=== PATIENT | female | born 1995 | race Caucasian/White ===

== ENCOUNTER 2024-03-24 06:48 | Emergency (ER) | payer BC ==
[2024-03-24 08:08] LABS: SARS-CoV-2 Antigen CONTROL BLUE LINE VIS/BG OK; SARS-CoV-2 Antigen Rapid Res Negative (Negative)
--- NOTE | 2024-03-24 08:25 | ER ---
Nurse's Notes [facility] Name: Karlee Valladares Age: 28 yrs Sex: Female : 1995 Arrival Date: 03/24/2024 Time: 06:48 Bed 20 Private MD: Diagnosis: Acute sinusitis, unspecified Presentation: 03/24 07:02 Chief complaint: Patient states: Headache, fatigue, chills since last night. Pt states ld1 "I just want a COVID test to rule it out.". Coronavirus screen: At this time, the client does not indicate any symptoms associated with coronavirus-19. Ebola Screen: No symptoms or risks identified at this time. Initial Sepsis Screen: Does the patient meet any 2 criteria? No. Patient's initial sepsis screen is negative. Does the patient have a suspected source of infection? No. Patient's initial sepsis screen is negative. Risk Assessment: Do you want to hurt yourself or someone else? Patient reports no desire to harm self or others. Onset of symptoms was March 24, 2024. 07:02 Method Of Arrival: Ambulatory ld1 07:02 Acuity: CHARITO 4 ld1 Triage Assessment: 07:03 General: Appears in no apparent distress. comfortable, Behavior is calm, cooperative, ld1 appropriate for age. Pain: Denies pain. EENT: No signs and/or symptoms were reported regarding the EENT system. Neuro: Level of Consciousness is awake, alert, obeys commands, Oriented to person, place, time, situation, Appropriate for age. Neuro: Reports headache. Cardiovascular: Capillary refill < 3 seconds Patient's skin is warm and dry. Respiratory: Airway is patent Respiratory effort is even, unlabored, Breath sounds are clear bilaterally. GI: Abdomen is round non-distended. : No signs and/or symptoms were reported regarding the genitourinary system. Derm: No signs and/or symptoms reported regarding the dermatologic system. Musculoskeletal: No signs and/or symptoms reported regarding the musculoskeletal system. Historical: - Allergies: 07:03 No Known Allergies; ld1 - Home Meds: 07:03 None [Active]; ld1 - PMHx: 07:03 None; ld1 - PSHx: 07:03 None; ld1 - Immunization history:: Adult Immunizations up to date. - Infectious Disease History:: Denies. - Social history:: Smoking status: Reported history of juuling and/or vaping. - Family history:: not pertinent. - Hospitalizations: : No recent hospitalization is reported. Screenin:04 [facility] ED Fall Risk Assessment (Adult) History of falling in the last 3 months, ld1 including since admission No falls in past 3 months (0 pts) Confusion or Disorientation No (0 pts) Intoxicated or Sedated No (0 pts) Impaired Gait No (0 pts) Mobility Assist Device Used No (0 pt) Altered Elimination No (0 pt) Score/Fall Risk Level 0 - 2 = Low Risk Oriented to surroundings, Maintained a safe environment, Educated pt \\T\\ family on fall prevention, incl call for assistance when getting out of bed, Assessed \\T\\ reinforced patient's understanding of fall precautions, Provided non-skid footwear, Hourly rounding (assess needs \\T\\ fall precautionary measures) done, Used ambulatory aids as needed (educated on \\T\\ assisted with), Used gait belt as appropriate. Abuse screen: Denies threats or abuse. Denies injuries from another. Nutritional screening: No deficits noted. Tuberculosis screening: No symptoms or risk factors identified. Assessment: 07:04 Reassessment: See triage assessment. Cardiovascular: Capillary refill < 3 seconds ld1 Patient's skin is warm and dry. Respiratory: Airway is patent Respiratory effort is even, unlabored. Vital Signs: 07:02 BP 148 / 107; Pulse 99; Resp 18; Temp 98.3(O); Pulse Ox 99% on R/A; Weight 106.59 kg; ld1 Height 5 ft. 2 in. ; Pain 0/10; 08:31 BP 159 / 64; Pulse 88; Resp 16; Pulse Ox 100% ; ko1 07:02 Body Mass Index 42.98 (106.59 kg, 157.48 cm) ld1 07:02 Pain Scale: Adult ld1 ED Course: 06:53 Patient arrived in ED. gm2 06:58 Kia Laura, MICH is Primary Nurse. ld1 06:58 Benjamín Meek MD is Attending Physician. rn 07:03 Triage completed. ld1 07:03 Arm band placed on right wrist. ld1 07:04 Patient has correct armband on for positive identification. Placed in gown. Bed in low ld1 position. Call light in reach. Side rails up X2. Pulse ox on. NIBP on. Door closed. Noise minimized. Warm blanket given. 07:04 No provider procedures requiring assistance completed. ld1 07:36 Strep Sent. ld1 07:36 Flu Sent. ld1 07:36 SARS RAPID Sent. ld1 08:31 Provided Education on: tests. ko1 08:31 Patient did not have IV access during this emergency room visit. ko1 Administered Medications: No medications were administered Medication: : VIS not applicable for this client. ko1 Outcome: 08:24 Discharge ordered by . rn 08:31 Discharged to home ambulatory, ko1 08:31 Condition: stable 08:31 Discharge instructions given to patient, Instructed on discharge instructions, follow up and referral plans. medication usage, Demonstrated understanding of instructions, follow-up care, medications, Prescriptions given X 1, 08:32 Patient left the ED. ko1 Signatures: Benjamín Meek MD MD rn Sims, Lauren, RN RN ld1 Nicole Deleon RN RN ko1 Helena Omer 2
--- NOTE | 2024-03-24 08:25 | EDPHYS ---
Physician Documentation [facility] Name: Karlee Valladares Age: 28 yrs Sex: Female : 1995 Arrival Date: 03/24/2024 Time: 06:48 Bed 20 Private MD: ED Physician Benjamín Meek HPI: 03/24 07:40 This 28 yrs old Female presents to ER via Ambulatory with complaints of Flu Symptoms, rn Congestion, Fever. 07:40 The patient reports fever, not measured (subjective). Onset: The symptoms/episode rn began/occurred yesterday. Modifying factors: there are no obvious modifying factors. Associated signs and symptoms: Pertinent positives: chills, sinus congestion, Pertinent negatives: abdominal pain, altered mental status, diarrhea, hemoptysis, skin rash, shortness of breath, swelling, vomiting. Severity of symptoms: At their worst the symptoms were mild in the emergency department the symptoms are unchanged. The patient has experienced similar episodes in the past. Historical: - Allergies: 07:03 No Known Allergies; ld1 - Home Meds: 07:03 None [Active]; ld1 - PMHx: 07:03 None; ld1 - PSHx: 07:03 None; ld1 - Immunization history:: Adult Immunizations up to date. - Infectious Disease History:: Denies. - Social history:: Smoking status: Reported history of juuling and/or vaping. - Family history:: not pertinent. - Hospitalizations: : No recent hospitalization is reported. ROS: 07:40 Constitutional: Positive for subjective fever and myalgias with chills Eyes: Negative rn for injury, pain, redness, and discharge, Neck: Negative for injury, pain, and swelling, Cardiovascular: Negative for chest pain, palpitations, and edema, Respiratory: Negative for shortness of breath, wheezing, and pleuritic chest pain, Abdomen/GI: Negative for abdominal pain, nausea, vomiting, diarrhea, and constipation, MS/Extremity: Negative for injury and deformity, Skin: Negative for injury, rash, and discoloration, Neuro: Positive for headache and generalized malaise Exam: 07:40 Constitutional: This is a well developed, well nourished patient who is awake, alert, rn and in no acute distress. ENT: Moist mucous membranes, normal pharynx. No swelling. No stridor. Neck: No cervical lymphadenopathy present. No nuchal rigidity or meningismus. Cardiovascular: Regular rate and rhythm. No pulse deficits. Respiratory: No increased work of breathing, no retractions or nasal flaring. Vital Signs: 07:02 BP 148 / 107; Pulse 99; Resp 18; Temp 98.3(O); Pulse Ox 99% on R/A; Weight 106.59 kg; ld1 Height 5 ft. 2 in. ; Pain 0/10; 08:31 BP 159 / 64; Pulse 88; Resp 16; Pulse Ox 100% ; ko1 07:02 Body Mass Index 42.98 (106.59 kg, 157.48 cm) ld1 07:02 Pain Scale: Adult ld1 MDM: 06:58 Patient medically screened. rn 08:23 Differential diagnosis: viral Infection, URI, sinusitis. Data reviewed: vital signs, rn nurses notes, lab test result(s), and as a result, I will discharge patient. Counseling: I had a detailed discussion with the patient and/or guardian regarding the historical points, exam findings, and any diagnostic results supporting the discharge/admit diagnosis, lab results, the need for outpatient follow up, to return to the emergency department if symptoms worsen or persist or if there are any questions or concerns that arise at home. Special discussion: I discussed with the patient/guardian in detail that at this point there is no indication for admission to the hospital. It is understood, however, that if the symptoms persist or worsen the patient needs to return immediately for re-evaluation. 03/24 07:17 Order name: Strep rn 03/24 07:16 Order name: SARS RAPID; Complete Time: 08:23 ld1 03/24 07:17 Order name: SARS RAPID rn 03/24 07:17 Order name: Flu; Complete Time: 08:23 rn 03/24 08:00 Order name: Throat Culture EDMS Administered Medications: No medications were administered Disposition Summary: 03/24/24 08:24 Discharge Ordered Notes: Location: Home rn Problem: new rn Symptoms: have improved rn Condition: Stable rn Diagnosis - Acute sinusitis, unspecified rn Followup: rn - With: Private Physician - When: As needed - Reason: Recheck today's complaints, Re-evaluation by your physician Discharge Instructions: - Discharge Summary Sheet rn - Sinusitis, Adult rn Forms: - Medication Reconciliation Form rn - Antibiotic patent prosecution attorney - Prescription Opioid Use rn - Patient Portal Instructions rn - Leadership Thank You Letter rn Prescriptions: - Zithromax Z-Jakob 250 mg Oral Tablet - take 1 tablet ORAL route as directed for 5 days Day 1 - take two (2) tablets rn one time. Day 2, 3, 4 , 5 take one (1) tablet once daily.; 6 tablet; Refills: 0, Product Selection Permitted Signatures: Dispatcher [employer] EDMS Benjamín Meek MD MD rn Sims, Lauren, RN RN ld1 Corrections: (The following items were deleted from the chart) 08:12 07:17 Influenza Screen (A \T\ B)+BA.LAB.BRZ ordered. EDMS EDMS
[2024-03-24 08:40] VITALS: TEMP 98.3
[2024-03-24 08:41] VITALS: BP 159/64; O2SAT 100
== END 2024-03-24 08:32 | disposition home or self-care (01) ==
LOC: ER 06:48
DX: J01.90 Acute sinusitis, unspecified (principal); Z11.52 Encounter for screening for COVID-19
CPT/HCPCS: 36415; 87070; 87081; 87804; 87811; 99283

== ENCOUNTER 2024-03-26 06:01 | Emergency (ER) | payer BC ==
[2024-03-26] MEDS ORDERED: IBUPROFEN 400 MG TAB ONE (07:09)
[2024-03-26 07:16] LABS: SARS-CoV-2 Antigen CONTROL BLUE LINE VIS/BG OK; SARS-CoV-2 Antigen Rapid Res Negative (Negative)
[2024-03-26 07:24] LABS: Specific Gravity 1.023 (1.005-1.030)
[2024-03-26 07:26] LABS: Specific Gravity 1.023 (1.005-1.030); Urine Bacteria None Seen /HPF (<20); Urine Bilirubin NEGATIVE (Negative); Urine Blood Negative (Negative); Urine Clarity Extremely Turbid (Clear); Urine Color Yellow (Yellow); Urine Culture Reflex Order REFLEXED; Urine Glucose NEGATIVE (Negative); Urine Ketones NEGATIVE (Negative); Urine Microscopic Reflex YN ORDER UMIC; Urine Mucus 2+ /HPF (None Seen); Urine Nitrite NEGATIVE (Negative); Urine Protein TRACE (Negative); Urine RBC <5 /HPF (None Seen); Urine Urobilinogen 1+ (Normal); Urine WBC 20-50 /HPF (<5); Urine WBC Clump Rare /HPF (None Seen)
--- NOTE | 2024-03-26 08:49 | ER ---
Nurse's Notes [facility] Name: Karlee Valladares Age: 28 yrs Sex: Female : 1995 Arrival Date: 03/26/2024 Time: 06:01 Bed 15 Private MD: Diagnosis: Headache;UTI/ Urinary tract infection, site not specified;Acute cystitis with hematuria;Fever, unspecified;Nausea with vomiting, unspecified Presentation: 03/26 06:05 Chief complaint: Patient states: head pressure, chills x 2 days. Was swabbed for Covid, ss flu and strep in ER two days ago and was negative for everything. Pt reports she does not feel better. Coronavirus screen: Client denies travel out of the [place] in the last 14 days. Client presents with at least one sign or symptom that may indicate coronavirus-19. Ebola Screen: Patient denies exposure to infectious person. Patient denies travel to an Ebola-affected area in the 21 days before illness onset. Initial Sepsis Screen: Does the patient meet any 2 criteria? No. Patient's initial sepsis screen is negative. Does the patient have a suspected source of infection? No. Patient's initial sepsis screen is negative. Risk Assessment: Do you want to hurt yourself or someone else? Patient reports no desire to harm self or others. Onset of symptoms was March 23, 2024. 06:05 Method Of Arrival: Ambulatory ss 06:05 Acuity: CHARITO 4 ss Triage Assessment: 07:20 Headache History: Denies prior headaches. 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 - Infectious Disease History:: Denies. - Social history:: Smoking status: Reported history of juuling and/or vaping. Screenin:18 [facility] ED Fall Risk Assessment (Adult) History of falling in the last 3 months, kc6 including since admission No falls in past 3 months (0 pts) Confusion or Disorientation No (0 pts) Intoxicated or Sedated No (0 pts) Impaired Gait No (0 pts) Mobility Assist Device Used No (0 pt) Altered Elimination No (0 pt) Score/Fall Risk Level 0 - 2 = Low Risk. Abuse screen: Denies threats or abuse. Denies injuries from another. Nutritional screening: No deficits noted. Tuberculosis screening: No symptoms or risk factors identified. Assessment: 07:19 General: Appears in no apparent distress. uncomfortable, obese, well groomed, well kc6 developed, Behavior is calm, cooperative, appropriate for age, Reports chills for 2-3 days, fever for 2-3 days, feeling ill for 2-3 days, fatigue for 2-3 days. Neuro: Level of Consciousness is awake, alert, obeys commands, Oriented to person, place, time, situation, Appropriate for age Reports headache weakness. Cardiovascular: Capillary refill < 3 seconds. Respiratory: Airway is patent Trachea midline Respiratory effort is even, unlabored, Respiratory pattern is regular, symmetrical. GI: Reports nausea, Patient currently denies abdominal pain, diarrhea, vomiting. : No signs and/or symptoms were reported regarding the genitourinary system. EENT: No signs and/or symptoms were reported regarding the EENT system. Derm: No signs and/or symptoms reported regarding the dermatologic system. Skin is intact, is healthy with good turgor, Skin is pink, warm \T\ dry. Musculoskeletal: No signs and/or symptoms reported regarding the musculoskeletal system. Circulation, motion, and sensation intact. Capillary refill < 3 seconds, Range of motion: intact in all extremities. 08:21 Reassessment: Patient appears in no apparent distress at this time. No changes from kc6 previously documented assessment. Patient and/or family updated on plan of care and expected duration. Pain level reassessed. Patient is alert, oriented x 3, equal unlabored respirations, skin warm/dry/pink. 09:38 Reassessment: Patient appears in no apparent distress at this time. No changes from kc6 previously documented assessment. Patient and/or family updated on plan of care and expected duration. Pain level reassessed. Patient is alert, oriented x 3, equal unlabored respirations, skin warm/dry/pink. Vital Signs: 06:05 BP 130 / 89; Pulse 105; Resp 18; Temp 99.3(TE); Pulse Ox 97% ; Weight 106.59 kg; Height ss 5 ft. 2 in. ; Pain 0/10; 08:21 BP 132 / 82; Pulse 90; Resp 18 S; Temp 98.3(O); Pulse Ox 100% on R/A; kc6 06:05 Body Mass Index 42.98 (106.59 kg, 157.48 cm) ss 06:05 Pain Scale: Adult ss [place] Coma Score: 08:46 Eye Response: spontaneous(4). Motor Response: obeys commands(6). Verbal Response: sumi oriented(5). Total: 15. ED Course: 06:04 Patient arrived in ED. jj6 06:08 Triage completed. ss 06:08 Arm band placed on. ss 07:02 COVID swab sent to lab. Flu and/or RSV swab sent to lab. oe 07:02 Flu Sent. oe 07:02 SARS RAPID Sent. oe 07:05 Abel Lares MD is Attending Physician. sumi 07:08 Ghazal Betts, RN is Primary Nurse. kc6 07:18 Patient has correct armband on for positive identification. Bed in low position. Call kc6 light in reach. Adult w/ patient. Pulse ox on. NIBP on. Door closed. Noise minimized. Lights dimmed. Warm blanket given. Pillow given. 07:18 Urinalysis w/ reflexes Sent. kc6 07:18 PREGU Sent. kc6 07:18 Strep Sent. kc6 09:37 No provider procedures requiring assistance completed. Patient did not have IV access kc6 during this emergency room visit. Administered Medications: 07:18 Drug: Ibuprofen PO 800 mg PO once Route: PO; kc6 08:22 Follow up: Response: No adverse reaction kc6 08:54 Drug: LevOfloxacin PO 750 mg PO once Route: PO; kc6 09:37 Follow up: Response: No adverse reaction kc6 08:54 Drug: Ondansetron Oral Disintegrating Tablet Oral Disintegrating Tablet 4 mg PO once kc6 Route: PO; 09:37 Follow up: Response: No adverse reaction kc6 Medication: 09:37 VIS not applicable for this client. kc6 Outcome: 08:48 Discharge ordered by . sumi 09:37 Discharged to home ambulatory, with significant other, kc6 09:37 Condition: good 09:37 Discharge instructions given to patient, significant other, Instructed on discharge instructions, follow up and referral plans. medication usage, Demonstrated understanding of instructions, follow-up care, medications, Prescriptions given X 09:38 Patient left the ED. kc6 Signatures: Abel Lares MD MD cha Blanchard, Shelby, RN RN Conrad Yip Jennifer jj6 Ghazal Betts RN RN kc6
--- NOTE | 2024-03-26 08:49 | EDPHYS ---
Physician Documentation [facility] Name: Karlee Valladares Age: 28 yrs Sex: Female : 1995 Arrival Date: 03/26/2024 Time: 06:01 Bed 15 Private MD: ED Physician Abel Lares HPI: 03/26 08:44 This 28 yrs old Female presents to ER via Ambulatory with complaints of sumi Headache, Nausea, CHILLS. 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 - Infectious Disease History:: Denies. - Social history:: Smoking status: Reported history of juuling and/or vaping. ROS: 08:45 Eyes: Negative for injury, pain, redness, and discharge, ENT: Negative for injury, sumi pain, and discharge, Neck: Negative for injury, pain, and swelling, Cardiovascular: Negative for chest pain, palpitations, and edema, Respiratory: Negative for shortness of breath, cough, wheezing, and pleuritic chest pain, Abdomen/GI: Negative for abdominal pain, nausea, vomiting, diarrhea, and constipation, Back: Negative for injury and pain, : Negative for injury, bleeding, discharge, and swelling, MS/Extremity: Negative for injury and deformity, Skin: Negative for injury, rash, and discoloration, Neuro: Negative for headache, weakness, numbness, tingling, and seizure, Psych: Negative for depression, anxiety, suicide ideation, homicidal ideation, and hallucinations, Allergy/Immunology: Negative for hives, rash, and allergies, Endocrine: Negative for neck swelling, polydipsia, polyuria, polyphagia, and marked weight changes, Hematologic/Lymphatic: Negative for swollen nodes, abnormal bleeding, and unusual bruising, 08:45 Constitutional: Positive for chills, fatigue, fever, malaise, Exam: 08:45 Head/Face: Normocephalic, atraumatic. Eyes: Pupils equal round and reactive to light, sumi extra-ocular motions intact. Lids and lashes normal. Conjunctiva and sclera are non-icteric and not injected. Cornea within normal limits. Periorbital areas with no swelling, redness, or edema. ENT: Nares patent. No nasal discharge, no septal abnormalities noted. Tympanic membranes are normal and external auditory canals are clear. Oropharynx with no redness, swelling, or masses, exudates, or evidence of obstruction, uvula midline. Mucous membranes moist. Neck: Trachea midline, no thyromegaly or masses palpated, and no cervical lymphadenopathy. Supple, full range of motion without nuchal rigidity, or vertebral point tenderness. No Meningismus. Chest/axilla: Normal chest wall appearance and motion. Nontender with no deformity. No lesions are appreciated. Cardiovascular: Regular rate and rhythm with a normal S1 and S2. No gallops, murmurs, or rubs. Normal PMI, no JVD. No pulse deficits. Respiratory: Lungs have equal breath sounds bilaterally, clear to auscultation and percussion. No rales, rhonchi or wheezes noted. No increased work of breathing, no retractions or nasal flaring. Abdomen/GI: Soft, non-tender, with normal bowel sounds. No distension or tympany. No guarding or rebound. No evidence of tenderness throughout. Back: No spinal tenderness. No costovertebral tenderness. Full range of motion. Skin: Warm, dry with normal turgor. Normal color with no rashes, no lesions, and no evidence of cellulitis. MS/ Extremity: Pulses equal, no cyanosis. Neurovascular intact. Full, normal range of motion. Neuro: Awake and alert, GCS 15, oriented to person, place, time, and situation. Cranial nerves II-XII grossly intact. Motor strength 5/5 in all extremities. Sensory grossly intact. Cerebellar exam normal. Normal gait. Psych: Awake, alert, with orientation to person, place and time. Behavior, mood, and affect are within normal limits. 08:45 Constitutional: The patient appears febrile, Vital Signs: 06:05 BP 130 / 89; Pulse 105; Resp 18; Temp 99.3(TE); Pulse Ox 97% ; Weight 106.59 kg; Height ss 5 ft. 2 in. ; Pain 0/10; 08:21 BP 132 / 82; Pulse 90; Resp 18 S; Temp 98.3(O); Pulse Ox 100% on R/A; kc6 06:05 Body Mass Index 42.98 (106.59 kg, 157.48 cm) ss 06:05 Pain Scale: Adult ss [place] Coma Score: 08:46 Eye Response: spontaneous(4). Motor Response: obeys commands(6). Verbal Response: sumi oriented(5). Total: 15. MDM: 07:05 Patient medically screened. sumi 08:46 Differential diagnosis: hypoglycemia, hyponatremia, tension headache. Data reviewed: [facility] vital signs, nurses notes, lab test result(s). Consideration of Admission/Observation Escalation of care including admission/observation considered. I considered the following discharge prescriptions or medication management in the emergency department Medications were administered in the Emergency Department. See MAR. Test considered but Not performed: Labs: no cbc , no comp met. Historians other than the Patient: Spouse/Significant Other: well informed. Care significantly affected by the following chronic conditions: Obesity, pcos. 03/26 07:06 Order name: Strep [facility] 03/26 06:17 Order name: SARS RAPID; Complete Time: 08:43 03/26 06:17 Order name: Flu; Complete Time: 08:43 03/26 07:06 Order name: Urinalysis w/ reflexes; Complete Time: 08:43 [facility] 03/26 07:06 Order name: PREGU; Complete Time: 08:43 [facility] 03/26 07:29 Order name: Urine Culture [facility] 03/26 07:48 Order name: Throat Culture EDRI Administered Medications: 07:18 Drug: Ibuprofen PO 800 mg PO once Route: PO; kc6 08:22 Follow up: Response: No adverse reaction kc6 08:54 Drug: LevOfloxacin PO 750 mg PO once Route: PO; kc6 09:37 Follow up: Response: No adverse reaction kc6 08:54 Drug: Ondansetron Oral Disintegrating Tablet Oral Disintegrating Tablet 4 mg PO once kc6 Route: PO; 09:37 Follow up: Response: No adverse reaction kc6 Disposition Summary: 03/26/24 08:48 Discharge Ordered Notes: Location: Home sumi Problem: new sumi Symptoms: have improved sumi Condition: Stable sumi Diagnosis - Headache sumi - UTI/ Urinary tract infection, site not specified sumi - Acute cystitis with hematuria sumi - Fever, unspecified sumi - Nausea with vomiting, unspecified sumi Followup: sumi - With: Private Physician - When: 2 - 3 days - Reason: Recheck today's complaints, Continuance of care, Re-evaluation by your physician Discharge Instructions: - Discharge Summary Sheet sumi - Dysuria sumi - Fever, Adult sumi - Nausea and Vomiting, Adult sumi - Nausea, Adult sumi - Urinary Tract Infection, Adult sumi - Urinary Tract Infection, Adult, [id number] [facility] Forms: - Medication Reconciliation Form sumi - Antibiotic Education sumi - Prescription Opioid Use sumi - Patient Portal Instructions sumi - Leadership Thank You Letter sumi - Work release form kc6 Prescriptions: - ondansetron 4 mg Oral Tablet,disintegrating - take 1 tablet ORAL route every 6-8 hours for 5 days; 20 tablet; Refills: 0, [facility] Product Selection Permitted - levofloxacin 500 mg Oral tablet - take 1 tablet ORAL route once daily for 7 days; 7 tablet; Refills: 0, Product [facility] Selection Permitted Signatures: Dispatcher [employer] EDMS Abel Lares MD MD cha Blanchard, Shelby, RN RN ss Ghazal Betts RN RN kc6 Corrections: (The following items were deleted from the chart) 08:45 08:45 Urine Culture+BA.LAB.BRZ ordered. EDMS EDMS
[2024-03-26] MEDS ORDERED: ONDANSETRON 4 MG (ODT) TAB ONE (08:51)
[2024-03-26] MEDS ORDERED: levoFLOXacin 750 MG TAB ONE (08:51)
[2024-03-26 09:51] VITALS: BP 132/82; TEMP 98.3; O2SAT 100
== END 2024-03-26 09:38 | disposition home or self-care (01) ==
LOC: ER 06:01
DX: N30.01 Acute cystitis with hematuria (principal); R50.9 Fever, unspecified; R11.2 Nausea with vomiting, unspecified; Z11.52 Encounter for screening for COVID-19
CPT/HCPCS: 87070; 87088; 81001; 87086; 36415; 81025; 87081; 87804 ×2; 99284; 87811; Q0162